=== PATIENT | female | born 1935 | race Caucasian/White ===

== ENCOUNTER → 2016-09-25 | Outpatient (CLI) | payer MEDICARE | END | disposition home or self-care (01) | LOC: PCVCCLINIC 12:31 | PROVIDERS: ATTEND Internal Medicine | DX: I25.10 Atherosclerotic heart disease of native coronary artery without angina pectoris (principal); I48.0 Paroxysmal atrial fibrillation; I10 Essential (primary) hypertension; G47.30 Sleep apnea, unspecified; E78.5 Hyperlipidemia, unspecified; Z79.01 Long term (current) use of anticoagulants | CPT/HCPCS: 93005; G0463 ==

== ENCOUNTER → 2017-03-13 | Outpatient (CLI) | payer MEDICARE | END | disposition home or self-care (01) | LOC: PCVCCLINIC 11:14 | PROVIDERS: ATTEND Internal Medicine | DX: I48.0 Paroxysmal atrial fibrillation (principal); I25.10 Atherosclerotic heart disease of native coronary artery without angina pectoris; I10 Essential (primary) hypertension; E78.5 Hyperlipidemia, unspecified; G47.33 Obstructive sleep apnea (adult) (pediatric); F32.9 Major depressive disorder, single episode, unspecified; Z79.01 Long term (current) use of anticoagulants; Z90.49 Acquired absence of other specified parts of digestive tract; Z90.710 Acquired absence of both cervix and uterus; Z87.891 Personal history of nicotine dependence; Z79.899 Other long term (current) drug therapy; Z86.73 Personal history of transient ischemic attack (TIA), and cerebral infarction without residual deficits | CPT/HCPCS: 36415; 80061; 93005; G0463 ==

== ENCOUNTER → 2017-09-11 | Outpatient (CLI) | payer MEDICARE | END | disposition home or self-care (01) | LOC: PCVCCLINIC 11:04 | DX: I48.0 Paroxysmal atrial fibrillation (principal); I25.10 Atherosclerotic heart disease of native coronary artery without angina pectoris; E78.5 Hyperlipidemia, unspecified; I10 Essential (primary) hypertension; G47.33 Obstructive sleep apnea (adult) (pediatric); Z79.01 Long term (current) use of anticoagulants; Z87.891 Personal history of nicotine dependence; Z79.899 Other long term (current) drug therapy | CPT/HCPCS: 80061; 93005; G0463 ==

== ENCOUNTER → 2018-03-12 | Outpatient (CLI) | payer MEDICARE | END | disposition home or self-care (01) | LOC: PCVCCLINIC 14:07 | DX: I25.10 Atherosclerotic heart disease of native coronary artery without angina pectoris (principal); I48.1 Persistent atrial fibrillation; E78.5 Hyperlipidemia, unspecified; I10 Essential (primary) hypertension; G47.33 Obstructive sleep apnea (adult) (pediatric); Z79.01 Long term (current) use of anticoagulants; Z87.891 Personal history of nicotine dependence; Z79.899 Other long term (current) drug therapy | CPT/HCPCS: 36415; 80061; 93005; G0463 ==

== ENCOUNTER → 2018-06-06 | Outpatient (CLI) | payer MEDICARE ==
--- NOTE | 2018-06-06 13:16 | PCVCIMAG ---
APPROVED REPORT Study performed: 06/06/2018 12:07:14 EXAM: Comprehensive 2D, Doppler, and color-flow Echocardiogram Patient Location: Echo lab Status: routine BSA: 1.79 HR: 79 bpmBP: 158/90 mmHg Rhythm: NSR Other Information Study Quality: Good Indications Dyspnea 2D Dimensions IVSd: 11.83 (7-11mm)LVOT Diam: 18.66 (18-24mm) LVDd: 42.27 mm PWd: 11.72 (7-11mm)Ascending Ao: 46.61 (22-36mm) LVDs: 33.56 (25-40mm) Left Atrium: 45.26 (27-40mm) Aortic Root: 35.97 mm LV Single Plane 2CH: 54.26 % Volumes Left Atrial Volume (Systole) Single Plane 4CH: 48.71 mLSingle Plane 2CH: 82.87 mL LA ESV Index: 38.00 mL/m2 Aortic Valve AoV Peak Compa.: 2.44 m/s AO Peak Gr.: 15.14 mmHgLVOT Max P.19 mmHg AO Mean Gr.: 12.73 mmHgLVOT Mean P.91 mmHg AO V2 Mean: 1.65 m/sLVOT Max V: 1.13 m/s AO V2 VTI: 52.69 cmLVOT Mean V: 0.80 m/s ARLINE (VTI): 1.26 [id number] VTI: 24.22 cm ARLINE Vmax: 1.27 cm2 AI Vmax: 4.65 m/sSV (LVOT): 66.18 mL AI Schleicher: 2.27 m/s2 AI PHT: 597.22 ms Mitral Valve E/A Ratio: 1.1 MV E Max Compa.: 1.47 m/s MV A Compa.: 1.39 m/s Pulmonary Valve PV Peak Gr.: 1.03 mmHg Tricuspid Valve TR Peak Compa.: 3.22 m/s TR Peak Gr.: 41.52 mmHg Left Ventricle The left ventricle is normal size. There is normal LV segmental wall motion. There is normal left ventricular wall thickness. Left ventricular systolic function is normal. The left ventricular ejection fraction is within the normal range. LVEF is >55%. This study is not technically sufficient to allow evaluation of the LV diastolic function due to atrial fibrillation. Right Ventricle The right ventricle is normal size. The right ventricular systolic function is normal. Atria Left atrium is mildly dilated. Right atrium is mildly dilated. Aortic Valve Aortic valve leaflets are mildly thickened and calcified Moderate aortic regurgitation. Peak aortic gradient is 24mmHg. Mean gradient 13mmHg. Valve area 1.3cm2. Mitral Valve Moderate mitral annular calcification. Moderate mitral regurgitation. No evidence of mitral valve stenosis. Tricuspid Valve The tricuspid valve is normal in structure. Moderate tricuspid regurgitation. Pulmonary artery pressure is 50mmHg. Pulmonic Valve The pulmonary valve is normal in structure. There is no pulmonic valvular regurgitation. Great Vessels The aortic root is normal in size. 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 Pericardium There is no pericardial effusion. <Conclusion> Left ventricular systolic function is normal. There is normal LV segmental wall motion. LVEF is >55%. Both atria are mildly dilated. Aortic valve leaflets are mildly thickened and calcified, mildly stenotic Moderate aortic regurgitation. Peak aortic gradient is 24mmHg. Mean gradient 13mmHg. Valve area 1.3cm2. Moderate mitral annular calcification. Moderate mitral regurgitation. Moderate tricuspid regurgitation. Pulmonary artery pressure is 50mmHg. 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
== END | disposition home or self-care (01) ==
LOC: PCVCIMAG 13:44
PROVIDERS: ATTEND Internal Medicine
DX: I08.3 Combined rheumatic disorders of mitral, aortic and tricuspid valves (principal); I48.1 Persistent atrial fibrillation; I25.10 Atherosclerotic heart disease of native coronary artery without angina pectoris; E78.5 Hyperlipidemia, unspecified; I10 Essential (primary) hypertension; G47.33 Obstructive sleep apnea (adult) (pediatric); R06.09 Other forms of dyspnea; Z79.01 Long term (current) use of anticoagulants; Z87.891 Personal history of nicotine dependence
CPT/HCPCS: 93306; G0463

== ENCOUNTER → 2018-06-06 | Outpatient (CLI) | payer MEDICARE | END | disposition home or self-care (01) | LOC: PCVCCLINIC 11:35 | PROVIDERS: ATTEND Internal Medicine | DX: I48.1 Persistent atrial fibrillation (principal); I25.10 Atherosclerotic heart disease of native coronary artery without angina pectoris; E78.5 Hyperlipidemia, unspecified; I10 Essential (primary) hypertension; G47.33 Obstructive sleep apnea (adult) (pediatric); Z79.01 Long term (current) use of anticoagulants; Z87.891 Personal history of nicotine dependence | CPT/HCPCS: 93005; G0463 ==

== ENCOUNTER → 2018-06-20 | Outpatient (CLI) | payer MEDICARE ==
[~2018-06-20] MED LIST: IV NORMAL SALINE 500ML BAG 500 ML ONE; MIDAZOLAM HCL/PF 2 MG/2 ML VIAL. ONE; fentaNYL PF VIAL 100 MCG/2 ML VIAL ONE
--- NOTE | 2018-06-20 13:04 | PCVCINTER ---
APPROVED REPORT Patient Location: Out-Patient Room #: 1 Stress Nurse: ESTELA BRANNON RN. Full written and informed consent was obtained. Patient was sedated with intravenous Versed 4mg and 50mcg fentanyl. 50 synchronous joules were applied to the chest with conversion of atrial fibrillation to sinus rhythm on the 1st shock. Conclusion 1. Successful cardioversion of atrial fibrillation to sinus rhythm with 50 biphasic, synchronous shocks
== END | disposition home or self-care (01) ==
LOC: PCVCINTER 08:28
PROVIDERS: ATTEND Internal Medicine
DX: I48.1 Persistent atrial fibrillation (principal); I10 Essential (primary) hypertension; I25.10 Atherosclerotic heart disease of native coronary artery without angina pectoris; F32.9 Major depressive disorder, single episode, unspecified; E78.5 Hyperlipidemia, unspecified; Z90.49 Acquired absence of other specified parts of digestive tract; Z90.710 Acquired absence of both cervix and uterus; Z98.890 Other specified postprocedural states; Z87.891 Personal history of nicotine dependence; Z72.89 Other problems related to lifestyle; Z79.899 Other long term (current) drug therapy; F41.9 Anxiety disorder, unspecified; Z79.01 Long term (current) use of anticoagulants; E03.9 Hypothyroidism, unspecified; G47.01 Insomnia due to medical condition
CPT/HCPCS: 92960; J2250; J3010; J7040

== ENCOUNTER → 2018-09-16 | Outpatient (CLI) | payer MEDICARE ==
--- NOTE | 2018-09-16 13:36 | PCVCIMAG ---
APPROVED REPORT Study performed: 09/16/2018 11:58:34 EXAM: Comprehensive 2D, Doppler, and color-flow Echocardiogram Patient Location: Echo lab Status: routine BSA: 1.79 HR: 72 bpmBP: 124/84 mmHg Rhythm: Atrial Fibrillation Other Information Study Quality: Adequate Risk Factors: Cardiac Risk Factors: HTN Indications Atrial Fibrillation CAD 2D Dimensions IVSd: 12.39 (7-11mm)LVOT Diam: 20.17 (18-24mm) LVDd: 41.53 mm PWd: 12.29 (7-11mm)Ascending Ao: 44.07 (22-36mm) LVDs: 36.29 (25-40mm) Left Atrium: 40.89 (27-40mm) Aortic Root: 42.49 mm LV Single Plane 4CH: 45.44 % LV Single Plane 2CH: 50.61 % Biplane EF: 47.6 % Volumes Left Atrial Volume (Systole) Single Plane 4CH: 101.53 mLSingle Plane 2CH: 100.87 mL LA ESV Index: 60.00 mL/m2 Aortic Valve AoV Peak Compa.: 2.51 m/s AO Peak Gr.: 25.26 mmHgLVOT Max P.58 mmHg AO Mean Gr.: 12.91 mmHgLVOT Mean P.03 mmHg AO V2 Mean: 1.69 m/sLVOT Max V: 1.18 m/s AO V2 VTI: 49.08 cmLVOT Mean V: 0.82 m/s ARLINE (VTI): 1.56 [id number] V1 VTI: 23.96 cm ARLINE Vmax: 1.50 cm2 AI Vmax: 5.41 m/sSV (LVOT): 76.50 mL AI Darke: 3.82 m/s2 AI PHT: 414.37 ms Mitral Valve E/A Ratio: 0.8 MV Decel. Time: 261.12 ms MV E Max Compa.: 0.81 m/s MV A Compa.: 1.08 m/s Pulmonary Valve PV Peak Compa.: 0.69 m/sPV Peak Gr.: 1.90 mmHg Tricuspid Valve TR Peak Compa.: 3.19 m/s TR Peak Gr.: 40.86 mmHg Left Ventricle The left ventricle is normal size. There is normal LV segmental wall motion. Mild concentric left ventricular hypertrophy. The left ventricular systolic function is normal. The left ventricular ejection fraction is within the normal range. LVEF 50%. This study is not technically sufficient to allow evaluation of the LV diastolic function due to atrial fibrillation. Right Ventricle The right ventricle is normal size. The right ventricular systolic function is normal. Atria Left atrium is severely dilated. Right atrium is moderately dilated. Aortic Valve Mild-moderate aortic valve calcification, trileaflet. Moderate to moderately severe aortic regurgitation There is mild valvular aortic stenosis. Calculated aortic valve area is 1.5 cm2 with maximum pressure gradient of 25 mmHg and mean pressure gradient of 13 mmHg. Mitral Valve Moderate mitral annular calcification Moderate mitral regurgitation. No evidence of mitral valve stenosis. Tricuspid Valve The tricuspid valve is normal in structure. Moderate tricuspid regurgitation with PAP of 45 mmHg. Pulmonic Valve The pulmonary valve is normal in structure. Mild pulmonic regurgitation. Great Vessels Aortic root is mildly dilated to 4.2 cm. The ascending aorta is dilated to 4.4 cm. IVC is normal in size and collapses >50% with inspiration. Pericardium There is no pericardial effusion. There is no pleural effusion. <Conclusion> The left ventricular systolic function is normal. There is normal LV segmental wall motion. LVEF 50%. Left atrium is severely dilated. Right atrium is moderately dilated. Mild-moderate aortic valve calcification, trileaflet. Mild stenosis Calculated aortic valve area is 1.5 cm2 with maximum pressure gradient of 25 mmHg and mean pressure gradient of 13 mmHg. Moderate to moderately severe aortic regurgitation Moderate mitral annular calcification. Moderate mitral regurgitation. Moderate tricuspid regurgitation with pulmonary artery pressure of 45 mmHg. The ascending aorta is dilated to 4.4 cm. There is no pericardial effusion.
== END | disposition home or self-care (01) ==
LOC: PCVCIMAG 12:37
PROVIDERS: ATTEND Internal Medicine
DX: I08.3 Combined rheumatic disorders of mitral, aortic and tricuspid valves (principal); I48.1 Persistent atrial fibrillation; I25.10 Atherosclerotic heart disease of native coronary artery without angina pectoris; E78.5 Hyperlipidemia, unspecified; I10 Essential (primary) hypertension; G47.33 Obstructive sleep apnea (adult) (pediatric); Z79.01 Long term (current) use of anticoagulants; Z87.891 Personal history of nicotine dependence
CPT/HCPCS: 36415; 80061; 93005; 93306; G0463

== ENCOUNTER → 2019-03-24 | Outpatient (CLI) | payer MEDICARE | END | disposition home or self-care (01) | LOC: PCVCCLINIC 14:34 | PROVIDERS: ATTEND Internal Medicine | DX: I48.1 Persistent atrial fibrillation (principal); I25.10 Atherosclerotic heart disease of native coronary artery without angina pectoris; I10 Essential (primary) hypertension; E78.5 Hyperlipidemia, unspecified; G47.33 Obstructive sleep apnea (adult) (pediatric); Z79.01 Long term (current) use of anticoagulants; Z79.899 Other long term (current) drug therapy; Z87.891 Personal history of nicotine dependence; Z72.89 Other problems related to lifestyle | CPT/HCPCS: 36415; 80061; 93005; G0463 ==

== ENCOUNTER → 2019-07-24 | Outpatient (CLI) | payer MEDICARE ==
--- NOTE | 2019-07-24 14:13 | PCVCIMAG ---
APPROVED REPORT Study performed: 07/24/2019 13:07:46 EXAM: Comprehensive 2D, Doppler, and color-flow Echocardiogram Patient Location: Echo lab Status: routine BSA: 1.85 HR: 72 bpmBP: 150/80 mmHg Rhythm: Atrial Fibrillation Other Information Study Quality: Adequate Risk Factors: Cardiac Risk Factors: HTN, Hyperlipidemia, SOB Indications Atrial Fibrillation ROBERT, COPD 2D Dimensions IVSd: 12.00 (7-11mm)LVOT Diam: 18.77 (18-24mm) LVDd: 46.36 mm PWd: 11.45 (7-11mm)Ascending Ao: 47.02 (22-36mm) LVDs: 29.16 (25-40mm) Left Atrium: 36.47 (27-40mm) Aortic Root: 35.08 mm LV Single Plane 4CH: 58.10 % Volumes Left Atrial Volume (Systole) Single Plane 4CH: 53.59 mLSingle Plane 2CH: 86.29 mL LA ESV Index: 37.00 mL/m2 Aortic Valve AoV Peak Compa.: 2.46 m/s AO Peak Gr.: 24.22 mmHgLVOT Max P.35 mmHg AO Mean Gr.: 13.17 mmHgLVOT Mean P.46 mmHg AO V2 Mean: 1.71 m/sLVOT Max V: 1.34 m/s AO V2 VTI: 51.54 cmLVOT Mean V: 1.01 m/s ARLINE (VTI): 1.59 [id number] V1 VTI: 29.62 cm ARLINE Vmax: 1.51 cm2 AI Vmax: 4.56 m/sSV (LVOT): 81.88 mL AI Bath: 2.87 m/s2 AI PHT: 463.33 ms Mitral Valve E/A Ratio: 1.2 MV E Max Compa.: 1.29 m/s MV A Compa.: 1.12 m/s Pulmonary Valve PV Peak Gr.: 2.00 mmHg Tricuspid Valve TR Peak Compa.: 2.63 m/s TR Peak Gr.: 27.96 mmHg Left Ventricle The left ventricle is normal size. There is normal LV segmental wall motion. There is normal left ventricular wall thickness. Left ventricular systolic function is normal. The left ventricular ejection fraction is within the normal range. LVEF is 55-60%. This study is not technically sufficient to allow evaluation of the LV diastolic function due to atrial fibrillation. Right Ventricle The right ventricle is normal size. The right ventricular systolic function is normal. Atria Left atrium is moderately dilated. Right atrium is dilated. Aortic Valve The aortic valve is moderately calcified, trileaflet Moderate aortic regurgitation. Peak aortic gradient is 24mmHg. Mean gradient is 13mmHg. Calculated aortic valve is 1.5cm2. Mitral Valve Moderate mitral annular calcification. Moderate mitral regurgitation. No evidence of mitral valve stenosis. Tricuspid Valve The tricuspid valve is normal in structure. Mild tricuspid regurgitation. Pulmonary artery pressure is 35mmHg. Pulmonic Valve The pulmonary valve is normal in structure. There is no pulmonic valvular regurgitation. Great Vessels The aortic root is normal in size. The ascending aorta is dilated (4.7cm). IVC is normal in size and collapses >50% with inspiration. Pericardium There is no pericardial effusion. <Conclusion> Left ventricular systolic function is normal. There is normal LV segmental wall motion. LVEF is 55-60%. Left atrium is moderately dilated. The aortic valve is moderately calcified, trileaflet. Mild stenosis, moderate aortic regurgitation. Peak aortic gradient is 24mmHg. Mean gradient is 13mmHg. Calculated aortic valve is 1.5cm2. Moderate mitral annular calcification. Moderate mitral regurgitation. Mild tricuspid regurgitation. Pulmonary artery pressure of 35mmHg. The ascending aorta is dilated (4.7cm). There is no pericardial effusion.
== END | disposition home or self-care (01) ==
LOC: PCVCIMAG 12:47
PROVIDERS: ATTEND Internal Medicine
DX: I08.3 Combined rheumatic disorders of mitral, aortic and tricuspid valves (principal); I10 Essential (primary) hypertension; E78.2 Mixed hyperlipidemia; I48.19 Other persistent atrial fibrillation; R06.00 Dyspnea, unspecified; I11.0 Hypertensive heart disease with heart failure; I50.32 Chronic diastolic (congestive) heart failure; I48.21 Permanent atrial fibrillation; I25.10 Atherosclerotic heart disease of native coronary artery without angina pectoris; E78.5 Hyperlipidemia, unspecified; G47.33 Obstructive sleep apnea (adult) (pediatric); Z87.891 Personal history of nicotine dependence; Z79.899 Other long term (current) drug therapy
CPT/HCPCS: 36415; 80061; 93005; 93306; G0463